=== PATIENT | male | born 1945 | race American Indian/Alaskan Native ===

== ENCOUNTER 2017-01-24 11:35 | Emergency (ER) | payer MEDICARE ==
[2017-01-24 12:21] LABS: Basophils % (Auto) 0.3 % (0.0-1.8); Eosinophils % (Auto) 0.5 % (0.0-4.3); Hematocrit 44.9 % (35.5-45.6); Hemoglobin 14.5 gm/dl (11.8-15.2); Mean Corpuscular HGB Conc 32 % (32-34); Mean Corpuscular Volume 79 fl (84-94); Platelet Count 223 K/mm3 (140-440); Red Blood Count 5.67 M/mm3 (3.65-5.03); Red Cell Distribution Width 15.1 % (13.2-15.2); White Blood Count 5.4 K/mm3 (4.5-11.0)
[2017-01-24 12:24] LABS: Mean Corpuscular Hemoglobin 26 pg (28-32)
--- NOTE | 2017-01-24 12:32 | Emergency Department Report ---
Entered by MICHAEL KINGSTON, acting as scribe for HEYDI DUCKWORTH PA. Chief Complaint: Abdominal Pain Stated Complaint: STOMACH PAIN Time Seen by Provider: 01/24/17 12:15 - HPI History of Present Illness: Pt c/o abdominal pain that began this morning. Rates pain a 5/10 in severity. Patient has a history of dementia his brother is in the ED with him, which is his primary caregiver. Pt's brother states he's eating well and behaving normally. Brother states that he was holding his abdomen this morning c/o pain. Pt states that he has no abdominal pain currently. Denies nausea and vomiting. Denies fever and chills. PMHx of dementia, CAD, and childhood polio. Brother notes compliancy to PCP appointments at the OR and dementia medication. - ROS Review of Systems: All systems are negative unless stated in the HPI above. - Exam Vital Signs: Vital Signs 01/24/17 11:40 Temperature 98.8 F Pulse Rate 94 H Respiratory 18 Rate Blood Pressure 134/70 O2 Sat by Pulse 98 Oximetry Physical Exam: GENERAL: Patient is alert and oriented x 3. No apparent distress, normal gait, atraumatic. LUNGS: Symmetrical with respiration. No wheezing, rales or crackles, CTAB. HEART: Regular rate and rhythm with normal S1/S2 present. No murmurs, rubs, or gallops. ABDOMEN: Soft, nondistended. Nontender to palpation on all quadrants. No organomegaly was noted. Positive bowel sounds. No CVA tenderness. MSE screening note: Focused history and physical exam performed. Due to findings the following was ordered: ED Medical Decision Making - Lab Data Result diagrams: 01/24/17 11:57 - Medical Decision Making Patient seen by provider in triage area. Blood work and UA was sent to lab for patient. Patient will be seen on the Main ED side by another provider. ED Disposition for MSE Condition: Stable Referrals: PRIMARY CARE,MD [Primary Care Provider] - 3-5 Days This documentation as recorded by the scribe,MICHAEL KINGSTON,accurately reflects the service I personally performed and the decisions made by me, HEYDI DUCKWORTH PA.
[2017-01-24 12:38] LABS: Alanine Aminotransferase 19 units/L (7-56); Albumin/Globulin Ratio 1.5 %; Alkaline Phosphatase 82 units/L (35-129); Anion Gap 18 mmol/L; Blood Urea Nitrogen 13 mg/dL (9-20); Calcium 9.3 mg/dL (8.4-10.2); Carbon Dioxide 27 mmol/L (22-30); Chloride 99.9 mmol/L (98-107); Glucose 146 mg/dL (75-100); Lipase 34 units/L (13-60); Potassium 3.9 mmol/L (3.6-5.0); Sodium 141 mmol/L (137-145); Total Protein 6.7 g/dL (6.3-8.2)
[2017-01-24 12:54] LABS: Bilirubin,Urine NEG (Negative); Blood,Urine NEG (Negative); Ketones,Urine TR mg/dL (Negative); Leukocyte Esterase,Urine NEG (Negative); Mucus,Urine 3+ /HPF; Nitrite,Urine NEG (Negative)
--- NOTE | 2017-01-24 16:02 | Cat Scan Report ---
FINAL REPORT EXAM: CT ABDOMEN PELVIS WO CON HISTORY: abd pain TECHNIQUE: Unenhanced stone protocol CT of the abdomen and pelvis at 1.25 mm and 2.5 mm axial increments. Coronal and sagittal reconstruction was also performed. PRIORS: None. FINDINGS: In the lower pole medially of the left kidney, there is a peripelvic cyst measuring 3.6 x 3.4 cm (axial image 117). There is a 2 mm nonobstructing calculus in the upper pole right kidney. There is no evidence for hydronephrosis. No evidence for ureteral or bladder calculus is seen. No evidence for renal or bladder mass is noted. Otherwise, within the limits of a noncontrast exam, the liver demonstrates a 2.7 x 2.5 cm cyst in the posterior upper right lobe. High-density material layers in the gallbladder, likely small stones or sludge. The spleen, pancreas, and adrenal glands are unremarkable. No evidence for retroperitoneal or pelvic lymphadenopathy is seen. The bowel loops have normal caliber. No fluid collection, inflammatory change, or free air is seen within the abdomen or pelvis. The appendix is normal. Moderate calcification of the aorta is seen. Within the pelvis, the prostate is mildly enlarged. Sigmoid diverticulosis without active diverticulitis is seen. Images through the upper abdomen include the lung bases which are expanded and clear. Bony structures show no focal abnormalities. Facet joint degenerative changes bilaterally are noted from L4 through S1. Moderate narrowing of L4-L5 disc space is seen. IMPRESSION: 1. No evidence for renal obstruction. Nonobstructing calculus in the right kidney. 2. Bilateral renal and hepatic cysts 3. Sludge or small gallstones in the gallbladder. 4. Sigmoid diverticulosis
--- NOTE | 2017-01-24 16:07 | Emergency Department Report ---
ED Abdominal Pain HPI - General Chief Complaint: Abdominal Pain Stated Complaint: STOMACH PAIN Time Seen by Provider: 01/24/17 12:30 Source: patient, family, RN notes reviewed Mode of arrival: Ambulatory Limitations: Other - History of Present Illness Initial Comments: This is a 71-year-old male. He is previously unknown to me. Primary care Dr.: [facility] Past medical history: Dementia, polio, heart disease History obtained by speaking to the patient and his brother, Mr. Hernan Haynes ; [phone] as for the patient's brother, the patient had an episode of abdominal pain earlier on today. It has since resolved. As for the patient's brother, the patient is back to his baseline. The patient has dementia and is a poor historian. To me, the patient denies headache, neck pain, chest pain, abdominal pain, dysuria, testicular pain. The patient's mother corroborates that the patient is back to his normal self, and he further states that the patient is is unable to describe exacerbating or relieving factors, qualitative nature of the pain. This is secondary to the patient's underlying dementia. MD Complaint: abdominal pain -: Gradual Improves With: other (as per history of present illness) Worsens With: other (as per history of present illness) Associated Symptoms: denies other symptoms. denies: nausea, vomiting, fever, dysuria - Related Data Home Medications Medication Instructions Recorded Confirmed Last Taken Unobtainable 01/24/17 01/24/17 Unknown Allergies Allergy/AdvReac Type Severity Reaction Status Date / Time No Known Allergies Allergy Unverified 01/24/17 11:44 ED Review of Systems ROS: Stated complaint: STOMACH PAIN Other details as noted in HPI Constitutional: denies: fever Eyes: denies: eye discharge ENT: denies: epistaxis Respiratory: denies: cough Cardiovascular: denies: chest pain Gastrointestinal: abdominal pain Genitourinary: denies: dysuria, testicular pain Neurological: denies: weakness ED Past Medical Hx - Past Medical History Previous Medical History?: Yes Hx Dementia: Yes Additional medical history: CAD, Had polio as a young child - Surgical History Past Surgical History?: Yes Hx Coronary Stent: Yes - Social History Smoking Status: Former Smoker Substance Use Type: Prescribed - Medications Home Medications: Home Medications Medication Instructions Recorded Confirmed Last Taken Type Unobtainable 01/24/17 01/24/17 Unknown History ED Physical Exam - General Limitations: Other (patient has dementia, is a poor historian) General appearance: alert, in no apparent distress - Head Head exam: Present: atraumatic, normocephalic - Eye Eye exam: Present: normal appearance, EOMI. Absent: nystagmus - ENT ENT exam: Present: normal exam, normal orophraynx, mucous membranes moist, normal external ear exam - Neck Neck exam: Present: normal inspection, full ROM. Absent: tenderness, meningismus - Respiratory Respiratory exam: Present: normal lung sounds bilaterally. Absent: respiratory distress, wheezes, rales, rhonchi, stridor, chest wall tenderness, accessory muscle use, decreased breath sounds, prolonged expiratory - Cardiovascular Cardiovascular Exam: Present: regular rate, normal rhythm, normal heart sounds. Absent: bradycardia, tachycardia, irregular rhythm, systolic murmur, diastolic murmur, rubs, gallop - GI/Abdominal GI/Abdominal exam: Present: soft, normal bowel sounds. Absent: distended, tenderness, guarding, rebound, rigid, pulsatile mass - Rectal Rectal exam: Present: deferred - exam: Present: normal inspection. Absent: testicular tenderness External exam: Present: normal external exam, other (there is no testicular tenderness. There is normal testicular lie bilaterally. There is normal cremasseteric reflex bilaterally) - Extremities Exam Extremities exam: Present: normal inspection, full ROM, normal capillary refill. Absent: tenderness, pedal edema, joint swelling, calf tenderness - Back Exam Back exam: Present: normal inspection, full ROM. Absent: tenderness, CVA tenderness (R), CVA tenderness (L), muscle spasm, paraspinal tenderness, vertebral tenderness - Neurological Exam Neurological exam: Present: alert (patient is alert to name, able to recognize brother. Brother indicates is the patient's normal mental status. ) - Psychiatric Psychiatric exam: Present: normal affect, normal mood - Skin Skin exam: Present: warm, dry, intact, normal color. Absent: rash ED Course Vital Signs 01/24/17 01/24/17 11:40 16:44 Temperature 98.8 F 97.8 F Pulse Rate 94 H 68 Respiratory 18 16 Rate Blood Pressure 134/70 Blood Pressure 133/79 [Right] O2 Sat by Pulse 98 97 Oximetry ED Medical Decision Making - Lab Data Result diagrams: 01/24/17 11:57 01/24/17 11:57 Vital Signs 01/24/17 01/24/17 11:40 16:44 Temperature 98.8 F 97.8 F Pulse Rate 94 H 68 Respiratory 18 16 Rate Blood Pressure 134/70 Blood Pressure 133/79 [Right] O2 Sat by Pulse 98 97 Oximetry Lab Results 01/24/17 01/24/17 01/24/17 Range/Units 11:57 11:57 Unknown WBC 5.4 (4.5-11.0) K/mm3 RBC 5.67 H (3.65-5.03) M/mm3 Hgb 14.5 (11.8-15.2) gm/dl Hct 44.9 (35.5-45.6) % MCV 79 L (84-94) fl MCH 26 L (28-32) pg MCHC 32 (32-34) % RDW 15.1 (13.2-15.2) % Plt Count 223 (140-440) K/mm3 Lymph % (Auto) 31.0 (13.4-35.0) % [place] % (Auto) 5.9 (0.0-7.3) % Eos % (Auto) 0.5 (0.0-4.3) % Baso % (Auto) 0.3 (0.0-1.8) % Lymph # 1.7 (1.2-5.4) K/mm3 [place] # 0.3 (0.0-0.8) K/mm3 Eos # 0.0 (0.0-0.4) K/mm3 Baso # 0.0 (0.0-0.1) K/mm3 Seg Neutrophils % 62.3 (40.0-70.0) % Seg Neutrophils # 3.4 (1.8-7.7) K/mm3 Sodium 141 (137-145) mmol/L Potassium 3.9 (3.6-5.0) mmol/L Chloride 99.9 (98-107) mmol/L Carbon Dioxide 27 (22-30) mmol/L Anion Gap 18 mmol/L BUN 13 (9-20) mg/dL Creatinine 1.0 (0.8-1.5) mg/dL Estimated GFR > 60 ml/min BUN/Creatinine Ratio 13.00 % Glucose 146 H (75-100) mg/dL Calcium 9.3 (8.4-10.2) mg/dL Total Bilirubin 0.40 (0.1-1.2) mg/dL AST 23 (5-40) units/L ALT 19 (7-56) units/L Alkaline Phosphatase 82 (35-129) units/L Total Protein 6.7 (6.3-8.2) g/dL Albumin 4.0 (3.9-5) g/dL Albumin/Globulin Ratio 1.5 % Lipase 34 (13-60) units/L Urine Color [place] (Yellow) Urine Turbidity Clear (Clear) Urine pH 5.0 (5.0-7.0) Ur Specific [place] 1.028 (1.003-1.030) Urine Protein 30 mg/dl (Negative) mg/dL Urine Glucose (UA) Neg (Negative) mg/dL Urine Ketones Tr (Negative) mg/dL Urine Blood Neg (Negative) Urine Nitrite Neg (Negative) Urine Bilirubin Neg (Negative) Urine Urobilinogen 2.0 (<2.0) mg/dL Ur Leukocyte Esterase Neg (Negative) Urine WBC (Auto) 3.0 (0.0-6.0) /HPF Urine RBC (Auto) 9.0 (0.0-6.0) /HPF U Epithel Cells (Auto) < 1.0 (0-13.0) /HPF Calcium Oxalate Crystal 2+ Hyaline Casts 4 /LPF Urine Mucus 3+ /HPF - EKG Data -: EKG Interpreted by Pa EKG shows normal: sinus rhythm, axis Rate: bradycardia - EKG Data 01/24/17 17:19 sinus bradycardia, 55 bpm, normal intervals, normal axis, not morphologically consistent with STEMI. - Radiology Data Radiology results: report reviewed, image reviewed Noncontrast CT scan without IV contrast demonstrates no acute disease. Nonobstructing calculus noted in the upper pole of the right kidney. The appendix is normal. No inflammatory bowel changes are noted. High-density material noted in the gallbladder, likely stones or sludge. - Medical Decision Making Differential diagnosis: Renal colic, biliary colic, pneumonia, GERD, gastritis, pancreatitis, constipation, functional abdominal pain Assessment and plan: 71-year-old male with resolved abdominal pain. He is afebrile, with reassuring vital signs, with no rebound, guarding or peritoneal signs. Laboratory studies did not corroborate pancreatitis, cholecystitis. there is no right upper quadrant tenderness. There is no right lower quadrant tenderness. He is a benign testicular examination, the patient is observed in the ER for a few hours without clinical decompensation. At this point in time, it does not appear that there is any emergent condition, the patient will be discharged with instructions to follow primary care doctor back in the [facility]. Return precautions were reviewed with the patient's brother, who verbalized understanding. EKG did not demonstrate any concerning ACS consistent abnormalities, there is no chest pain Given normal laboratory studies, lack of right upper quadrant tenderness, rebound, Dumas sign, I don't believe the patient requires additional imaging of the gallbladder or biliary system at this time. Critical care attestation.: If time is entered above; I have spent that time in minutes in the direct care of this critically ill patient, excluding procedure time. ED Disposition Clinical Impression: Abdominal pain Disposition: DISCHARGED TO HOME OR SELFCARE Is pt being admited?: No Does the pt Need Aspirin: No Condition: Stable Instructions: Abdominal Pain (ED) Additional Instructions: Continue current outpatient medications. Follow up with your outpatient primary care doctor within the next 7-[address] scan of the abdomen and pelvis demonstrated either stone or sludge in the gallbladder, and a nonobstructing stone in the upper pole of the right kidney. Return to the ER right away with new pain, worsened pain, migration of pain, fevers, chills, confusion, nausea or vomiting, inability to tolerate liquid feeds. Referrals: PRIMARY MD MIKEY [Primary Care Provider] - 3-5 Days KELLY SCOTT MD [Staff Physician] - 3-5 Days [facility] [Provider Group] - 3-5 Days
[2017-01-24 16:45] VITALS: BP 133/79
== END 2017-01-24 17:22 | disposition home or self-care (01) ==
LOC: ED 11:35
DX: R10.9 Unspecified abdominal pain (principal); F03.90 Unspecified dementia, unspecified severity, without behavioral disturbance, psychotic disturbance, mood disturbance, and anxiety; Z87.891 Personal history of nicotine dependence
CPT/HCPCS: 36415; 74176; 80053; 81001; 83690; 85025; 93005; 93010